=== PATIENT | male | born 1970 | race Caucasian/White ===

== ENCOUNTER 2020-04-20 18:47 | Emergency (ER) | payer OTHER ==
[~2020-04-20] VITALS: Ht 182.9 cm; Wt 134.1 kg
[2020-04-20 20:42] LABS: BASO # 0.1 x10^3/uL (0.0-0.2); BASO % 1 % (0-3); EOS # 0.3 x10^3/uL (0.0-0.7); EOS % 2 % (0-3); HEMATOCRIT 43.1 % (39.0-53.0); HEMOGLOBIN 14.7 g/dL (13.0-17.5); LYMPH # 1.1 x10^3/uL (1.0-4.8); LYMPH % 9 % (24-48); MEAN CORPUSCULAR HEMOGLOBIN 29 pg (25-35); MEAN CORPUSCULAR HGB CONC 34 g/dL (31-37); MEAN CORPUSCULAR VOLUME 86 fL (79-100); MONO # 0.5 x10^3/uL (0.0-1.1); MONO % 4 % (0-9); NEUT # 9.4 x10^3/uL (1.8-7.7); NEUT % 83 % (31-73); PLATELET COUNT 300 x10^3/uL (140-400); RED BLOOD COUNT 5.01 x10^6/uL (4.30-5.70); RED CELL DISTRIBUTION WIDTH 14.6 % (11.5-14.5); WHITE BLOOD COUNT 11.3 x10^3/uL (4.0-11.0)
[2020-04-20 20:44] LABS: BILIRUBIN,URINE NEGATIVE (NEG); CLARITY,URINE CLEAR; COLOR,URINE YELLOW; NITRITE,URINE NEGATIVE (NEG); PH,URINE 5.5 (<5.0-8.0); PROTEIN,URINE 30 mg/dL (NEG-TRACE); UROBILINOGEN,URINE 0.2 mg/dL (0.2 mg/dL)
[2020-04-20 20:50] LABS: BACTERIA,URINE 0 /HPF (0-FEW); RBC,URINE >40 /HPF (0-2); WBC,URINE OCC /HPF (0-4)
--- NOTE | 2020-04-20 20:55 | PHYS DOC ---
Past Medical History Past Medical History: Diabetes-Type II, High Cholesterol, Hypertension Past Surgical History: No Surgical History Smoking Status: Never Smoker Alcohol Use: None General Adult EDM: Chief Complaint: FLANK PAIN HPI: HPI: Patient is a 49 year old male who presents with acute left flank pain. Onset of symptoms was less than 1 hour prior to arrival. 800 mg ibuprofen was taken on onset, nothing else known makes better or worse. Patient reports left flank pain that was sharp, non-radiating and 10/10 in severity. Patient reports no inciting events, claims he was sleeping when pain started. Timing of pain was constant since onset but arrived shortly after arrival into ED room. Patient reports distant history of kidney stone but unsure if this was similar. He denies other symptoms of hematuria, history of STDs, changes in bladder or bowel habits, or incontinence Review of Systems: Review of Systems: Constitutional: Denies fever or chills. Eyes: Denies change in visual acuity. HENT: Denies nasal congestion or sore throat. Respiratory: Denies cough or shortness of breath. Cardiovascular: Denies chest pain or edema. GI: Denies vomiting, bloody stools or diarrhea. Positive for left flank pain as described in HPI, positive nausea : Denies dysuria. No gross hematuria Musculoskeletal: Denies back pain or joint pain. Integument: Denies rash. Neurologic: Denies headache, focal weakness or sensory changes. Endocrine: Denies polyuria or polydipsia. Lymphatic: Denies swollen glands. Psychiatric: Denies depression or anxiety. Heart Score: Risk Factors: Risk Factors: DM, Current or recent (<one month) smoker, HTN, HLP, family history of CAD, obesity. Risk Scores: Score 0 - 3: 2.5% MACE over next 6 weeks - Discharge Home Score 4 - 6: 20.3% MACE over next 6 weeks - Admit for Clinical Observation Score 7 - 10: 72.7% MACE over next 6 weeks - Early Invasive Strategies Allergies: Allergies: Allergies Coded Allergies Type Severity Reaction Last Updated Verified No Known Drug Allergies 04/20/20 No Physical Exam: PE: Constitutional: Well developed, well nourished, no acute distress, non-toxic appearance. [] HENT: Normocephalic, atraumatic, bilateral external ears normal, oropharynx moist, no oral exudates, nose normal. [] Eyes: PERRLA, EOMI, conjunctiva normal, no discharge. [] Neck: Normal range of motion, no tenderness, supple, no stridor. [] Cardiovascular:Heart rate regular rhythm, no murmur [] Lungs & Thorax: Bilateral breath sounds clear to auscultation [] Abdomen: Bowel sounds normal, soft, no tenderness, no masses, no pulsatile masses. No suprapubic tenderness. Nonsurgical abdomen, no peritoneal signs [] Skin: Warm, dry, no erythema, no rash. [] Back: No tenderness, mild left CVA tenderness. [] Extremities: No tenderness, no cyanosis, no clubbing, ROM intact, no edema. [] Neurologic: Alert and oriented X 3, normal motor function, normal sensory function, no focal deficits noted. [] Psychologic: Affect normal, judgement normal, mood normal. [] Current Patient Data: Labs: Laboratory Tests Test 04/20/20 19:10 04/20/20 19:25 Urine Collection Type Unknown Urine Color Yellow Urine Clarity Clear Urine pH 5.5 (<5.0-8.0) Urine Specific [place] 1.020 (1.000-1.030) Urine Protein 30 mg/dL (NEG-TRACE) Urine Glucose (UA) Negative mg/dL (NEG) Urine Ketones (Stick) Trace mg/dL (NEG) Urine Blood Large (NEG) Urine Nitrite Negative (NEG) Urine Bilirubin Negative (NEG) Urine Urobilinogen Dipstick 0.2 mg/dL (0.2 mg/dL) Urine Leukocyte Esterase Negative (NEG) Urine RBC >40 /HPF (0-2) Urine WBC Occ /HPF (0-4) Urine Squamous Epithelial Cells None /LPF Urine Bacteria 0 /HPF (0-FEW) Urine Mucus Slight /LPF White Blood Count 11.3 x10^3/uL (4.0-11.0) H Red Blood Count 5.01 x10^6/uL (4.30-5.70) Hemoglobin 14.7 g/dL (13.0-17.5) Hematocrit 43.1 % (39.0-53.0) Mean Corpuscular Volume 86 fL (79-100) Mean Corpuscular Hemoglobin 29 pg (25-35) Mean Corpuscular Hemoglobin Concent 34 g/dL (31-37) Red Cell Distribution Width 14.6 % (11.5-14.5) H Platelet Count 300 x10^3/uL (140-400) Neutrophils (%) (Auto) 83 % (31-73) H Lymphocytes (%) (Auto) 9 % (24-48) L Monocytes (%) (Auto) 4 % (0-9) Eosinophils (%) (Auto) 2 % (0-3) Basophils (%) (Auto) 1 % (0-3) Neutrophils # (Auto) 9.4 x10^3/uL (1.8-7.7) H Lymphocytes # (Auto) 1.1 x10^3/uL (1.0-4.8) Monocytes # (Auto) 0.5 x10^3/uL (0.0-1.1) Eosinophils # (Auto) 0.3 x10^3/uL (0.0-0.7) Basophils # (Auto) 0.1 x10^3/uL (0.0-0.2) Laboratory Tests 04/20/20 19:25 Vital Signs: Vital Signs Date Time Temp Pulse Resp B/P (MAP) Pulse Ox O2 Delivery O2 Flow Rate FiO2 04/20/20 19:08 98.8 75 18 158/101 (120) 98 Room Air 98.8 EKG: EKG: EKG obtained and reviewed by myself at 2046 hrs., normal sinus rhythm at 75 bpm, unremarkable intervals, mild left axis deviation, no acute ischemia, no STEMI Radiology/Procedures: Radiology/Procedures: [] Course & Med Decision Making: Course & Med Decision Making Patient seen on ED arrival by myself Vital signs remarkable for elevated blood pressure otherwise grossly unremarkable Physical exam grossly unremarkable, nonsurgical abdomen Pertinent Labs and Imaging studies reviewed. (See chart for details) Besides elevated blood pressure, and hematuria found on UA, no other concerning findings today. Discussed potential of imaging with patient; however, given that patient had been asymptomatic since ED arrival with known history of kidney stones, recommended imaging studies deferred Patient was able to tolerate p.o. intake and self ambulate in ED prior to departure without issue. Continued supportive care for most likely nephrolithiasis versus left lumbar strain with as needed 800 mg ibuprofen previously prescribed for right shoulder advised with close PCP follow-up advised regarding resolved left flank pain and uncontrolled hypertension. Strict return precautions discussed at length with good understanding. All que stions and concerns addressed prior to ED departure [] Trev Disclaimer: Trev Disclaimer: This electronic medical record was generated, in whole or in part, using a voice recognition dictation system. Departure Departure Impression: Primary Impression: Left flank pain Additional Impression: HTN (hypertension) Disposition: 01 HOME, SELF-CARE Referrals: CALLIE PUENTE MD (PCP) Follow-up for left flank pain, likely kidney stone Follow-up on uncontrolled hypertension, Patient Instructions: Flank Pain, Hypertension Additional Instructions: Continue to take 800 mg ibuprofen as needed for pain as previously scheduled Justicifation of Admission Dx: Justifications for Admission: Justification of Admission Dx: N/A ALONZO ALDANA DO Apr 20, 2020 20:55
[2020-04-20 21:23] LABS: CALCIUM 8.5 mg/dL (8.5-10.1); GFR 79.1; POTASSIUM 3.9 mmol/L (3.5-5.1)
[2020-04-20 21:29] LABS: ALBUMIN 3.3 g/dL (3.4-5.0); TOTAL BILIRUBIN 0.5 mg/dL (0.2-1.0); TOTAL PROTEIN 6.7 g/dL (6.4-8.2)
[2020-04-20 22:14] VITALS: BP 165/107
--- NOTE | 2020-04-21 04:46 | EKG ---
[facility] [address] [place] [address] Test Date: 2020-04-20 Test Time: 20:40:16 Pat Name: ABEBE KING Department: Room: Gender: M Roundsman: Felicity : 1970 Requested By: ALONZO ALDANA Order Number: [id number] Reading MD: Measurements Intervals [place] Rate: 75 P: -17 MS: 158 QRS: 0 QRSD: 94 T: 9 QT: 390 QTc: 438 Interpretive Statements SINUS RHYTHM LEFTWARD AXIS NO SPECIFIC ECG ABNORMALITIES RI6.01 No previous ECG available for comparison
== END 2020-04-20 22:46 | disposition home or self-care (01) ==
LOC: ER 18:47
DX: I10 Essential (primary) hypertension (principal); R10.9 Unspecified abdominal pain; R11.0 Nausea; M54.2 Cervicalgia; E11.9 Type 2 diabetes mellitus without complications; E78.00 Pure hypercholesterolemia, unspecified
CPT/HCPCS: 36415; 80053; 81001; 85025; 93005; 99285

== ENCOUNTER 2021-11-21 08:28 | Emergency (ER) | payer BC, OTHER ==
[~2021-11-21] VITALS: Ht 185.4 cm; Wt 120.4 kg
[2021-11-21] MEDS ORDERED: KETOROLAC 15 MG/ML VIAL. IVP ONE (08:45)
[2021-11-21] MEDS ORDERED: METOCLOPRAMIDE HCL 10 MG/2 ML VIAL. IVP ONE (08:45)
[2021-11-21] MEDS ORDERED: IV NORMAL SALINE 1000ML BAG 1,000 ML IV ONE (08:45)
[2021-11-21 08:51] LABS: BASO # 0.1 x10^3/uL (0.0-0.2); BASO % 1 % (0-3); EOS # 0.2 x10^3/uL (0.0-0.7); EOS % 2 % (0-3); HEMOGLOBIN 15.7 g/dL (13.0-17.5); LYMPH # 1.2 x10^3/uL (1.0-4.8); LYMPH % 11 % (24-48); MEAN CORPUSCULAR HEMOGLOBIN 30 pg (25-35); MEAN CORPUSCULAR HGB CONC 33 g/dL (31-37); MEAN CORPUSCULAR VOLUME 89 fL (79-100); MONO # 0.8 x10^3/uL (0.0-1.1); MONO % 7 % (0-9); NEUT # 8.9 x10^3/uL (1.8-7.7); NEUT % 80 % (31-73); PLATELET COUNT 374 x10^3/uL (140-400); RED BLOOD COUNT 5.32 x10^6/uL (4.30-5.70); RED CELL DISTRIBUTION WIDTH 13.7 % (11.5-14.5); WHITE BLOOD COUNT 11.2 x10^3/uL (4.0-11.0)
[2021-11-21 08:53] LABS: BILIRUBIN,URINE NEGATIVE (NEG); CLARITY,URINE TURBID; COLOR,URINE YELLOW; NITRITE,URINE NEGATIVE (NEG); PROTEIN,URINE NEGATIVE (NEG-TRACE); UROBILINOGEN,URINE 0.2 mg/dL (0.2 mg/dL)
[2021-11-21 09:00] LABS: AMORPHOUS SEDIMENT,UR PRESENT /HPF
[2021-11-21 09:01] LABS: BACTERIA,URINE 0 /HPF (0-FEW); WBC,URINE OCC /HPF (0-4)
[2021-11-21 09:10] LABS: CALCIUM 8.7 mg/dL (8.5-10.1); CREATININE 1.6 mg/dL (0.7-1.3); GFR 45.6; POTASSIUM 4.8 mmol/L (3.5-5.1)
[2021-11-21 09:16] LABS: ALBUMIN 3.8 g/dL (3.4-5.0); ALBUMIN/GLOBULIN RATIO 1.2 (1.0-1.7); MAGNESIUM 2.1 mg/dL (1.8-2.4); TOTAL BILIRUBIN 0.6 mg/dL (0.2-1.0)
[2021-11-21 09:38] VITALS: BP 141/90
--- NOTE | 2021-11-21 09:40 | RAD ---
INDICATION: Reason: left flank pain, nausea, eval for kidney stone / Spl. Instructions: / History: COMPARISON: None. TECHNIQUE: Axial CT images were obtained through the abdomen and pelvis without intravenous contrast. One or more of the following individualized dose reduction techniques were utilized for this examinat ion: 1. Automated exposure control; 2. Adjustment of the mA and/or kV according to patient size; 3 . Use of iterative reconstruction technique. FINDINGS: Mild bronchiectasis at lung base. Vascular: No abdominal aortic aneurysm. Hepatobiliary: Liver is mildly prominent in size. Pancreas: No peripancreatic edema. Spleen: Spleen unremarkable. Renal/Bladder: 7 cm left renal cystic lesion. Additional low-density exophytic lesion off the right k [place]ney. Left-sided hydronephrosis and hydroureter with perinephric edema. There is a couple of left di stal ureter stones measuring up to 3 mm. Urinary bladder is decompressed with thickened wall and niurka stinctness of adjacent fat. Gastrointestinal: Mild prominence of rectal wall but the rectum is not very distended. Colonic divert iculosis. Small fat-containing umbilical hernia. No periappendiceal inflammatory changes. Degenerative changes the spine with multilevel central canal and neural foraminal stenosis. IMPRESSION: * Left-sided hydronephrosis and hydroureter with adjacent edema and a couple of distal ureter stone s. * Urinary bladder is decompressed with prominence of the wall. Could be from lack of distention but cannot exclude cystitis. Electronically signed by: Bunny Clinton MD (11/21/2021 9:38 AM) [id number]
--- NOTE | 2021-11-21 09:43 | PHYS DOC ---
Past Medical History Past Medical History: Diabetes-Type II, High Cholesterol, Hypertension Past Surgical History: Other Additional Past Surgical Histo: RIGHT SHOULDER Smoking Status: Never Smoker Alcohol Use: Rarely General Adult EDM: Chief Complaint: NAUSEA/VOMITING/DIARRHEA HPI: HPI: Patient is a 51 year old M who presents with n/v since 11/19/21. Patient reports Saturday night he began experiencing 7/10 stabbing, localized Left flank pain and subsequently had 2 episodes of vomiting. Patient reports having experienced a similar pain 2 years ago and pain resolving with ibuprofen. However, Patient reports taking ibuprofen 800mg q4h and a heating pad with minimal relief. He reports that the pain increased to a 8/10 on Saturday and had to leave work. He reports having to pull-over while driving home due to "excruciating pain" and experiencing another episode of n/v. Patient now reports his pain is a 9/10. Patient reports he has been on the "[employer] diet" for the past 3 weeks which includes cutting down on sugar and carbohydrate intake. He denies changes in urinary frequency, dysuria, hematuria, fever, chills, night sweats, chest pain, and shortness of breath. Review of Systems: Review of Systems: Constitutional: Denies fever or chills. HENT: Denies nasal congestion or sore throat. Respiratory: Denies cough or shortness of breath. Cardiovascular: Denies chest pain or palpitations. GI: Denies abdominal pain and diarrhea. Reports nausea, vomiting, and left flank pain. : Denies dysuria or hematuria. Musculoskeletal: Denies back pain or joint pain. Integument: Denies rash or skin lesions. Neurologic: Denies headache, focal weakness or sensory changes. Complete systems were reviewed and found to be within normal limits, except as documented in this note. Heart Score: C/O Chest Pain: No Current Medications: Current Medications Medications (Trade) Dose Ordered Sig/Adrienne Start Time Stop Time Status Last Admin Dose Admin Ketorolac Tromethamine (Toradol 15mg Vial) 15 mg 1X ONCE 11/21/21 08:45 11/21/21 08:49 DC 11/21/21 09:01 15 MG Metoclopramide HCl (Reglan Vial) 10 mg 1X ONCE 11/21/21 08:45 11/21/21 08:49 DC 11/21/21 08:59 10 MG Sodium Chloride 1,000 ml @ 1,000 mls/hr 1X ONCE 11/21/21 08:45 11/21/21 09:44 11/21/21 08:59 1,000 MLS/HR Allergies: Allergies: Allergies Coded Allergies Type Severity Reaction Last Updated Verified No Known Drug Allergies 04/20/20 No Physical Exam: PE: Constitutional: Well developed, well nourished, mild distress, non-toxic appearance. HENT: Normocephalic, atraumatic. Eyes: PERRL, EOMI, conjunctiva normal, no discharge. Neck: Normal range of motion, no tenderness, supple. Lungs & Thorax: No respiratory distress, equal chest rise and fall. Abdomen: Soft, no tenderness, normoactive bowel sounds x4 quadrants. Skin: Warm, dry, no erythema, no rash. Back: No tenderness, Left-sided CVA tenderness. Extremities: No tenderness, ROM intact, no edema, +2/4 bilateral UE/LE pulses. Neurologic: Alert and oriented X 3, normal motor function, normal sensory function, no focal deficits noted. Psychologic: Affect normal, judgment normal. Current Patient Data: Labs: Laboratory Tests Test 11/21/21 08:45 White Blood Count 11.2 x10^3/uL (4.0-11.0) H Red Blood Count 5.32 x10^6/uL (4.30-5.70) Hemoglobin 15.7 g/dL (13.0-17.5) Hematocrit 47.0 % (39.0-53.0) Mean Corpuscular Volume 89 fL (79-100) Mean Corpuscular Hemoglobin 30 pg (25-35) Mean Corpuscular Hemoglobin Concent 33 g/dL (31-37) Red Cell Distribution Width 13.7 % (11.5-14.5) Platelet Count 374 x10^3/uL (140-400) Neutrophils (%) (Auto) 80 % (31-73) H Lymphocytes (%) (Auto) 11 % (24-48) L Monocytes (%) (Auto) 7 % (0-9) Eosinophils (%) (Auto) 2 % (0-3) Basophils (%) (Auto) 1 % (0-3) Neutrophils # (Auto) 8.9 x10^3/uL (1.8-7.7) H Lymphocytes # (Auto) 1.2 x10^3/uL (1.0-4.8) Monocytes # (Auto) 0.8 x10^3/uL (0.0-1.1) Eosinophils # (Auto) 0.2 x10^3/uL (0.0-0.7) Basophils # (Auto) 0.1 x10^3/uL (0.0-0.2) Urine Collection Type Void Urine Color Yellow Urine Clarity Turbid Urine pH 6.0 (<5.0-8.0) Urine Specific [place] >=1.030 (1.000-1.030) Urine Protein Negative mg/dL (NEG-TRACE) Urine Glucose (UA) Negative mg/dL (NEG) Urine Ketones (Stick) 15 mg/dL (NEG) Urine Blood Moderate (NEG) Urine Nitrite Negative (NEG) Urine Bilirubin Negative (NEG) Urine Urobilinogen Dipstick 0.2 mg/dL (0.2 mg/dL) Urine Leukocyte Esterase Negative (NEG) Urine RBC 3-5 /HPF (0-2) Urine WBC Occ /HPF (0-4) Urine Amorphous Sediment Present /HPF Urine Bacteria 0 /HPF (0-FEW) Sodium Level 136 mmol/L (136-145) Potassium Level 4.8 mmol/L (3.5-5.1) Chloride Level 101 mmol/L (98-107) Carbon Dioxide Level 26 mmol/L (21-32) Anion Gap 9 (6-14) Blood Urea Nitrogen 17 mg/dL (8-26) Creatinine 1.6 mg/dL (0.7-1.3) H Estimated GFR (Cockcroft-Gault) 45.6 BUN/Creatinine Ratio 11 (6-20) Glucose Level 161 mg/dL (70-99) H Calcium Level 8.7 mg/dL (8.5-10.1) Magnesium Level 2.1 mg/dL (1.8-2.4) Total Bilirubin 0.6 mg/dL (0.2-1.0) Aspartate Amino Transferase (AST) 26 U/L (15-37) Alanine Aminotransferase (ALT) 38 U/L (16-63) Alkaline Phosphatase 81 U/L (46-116) Troponin I High Sensitivity 11 ng/L (4-75) Total Protein 7.0 g/dL (6.4-8.2) Albumin 3.8 g/dL (3.4-5.0) Albumin/Globulin Ratio 1.2 (1.0-1.7) Lipase 275 U/L (73-393) Laboratory Tests 11/21/21 08:45 Laboratory Tests 11/21/21 08:45 Vital Signs: Vital Signs Date Time Temp Pulse Resp B/P (MAP) Pulse Ox O2 Delivery O2 Flow Rate FiO2 11/21/21 08:43 97.0 75 18 155/98 (117) 98 Room Air 97.0 EKG: EK:16:22 Rate 70 with normal sinus rhythm. No ST elevations. MO 156ms, QRS 90ms, QTc 400ms. Radiology/Procedures: Radiology/Procedures: PROCEDURE: CT ABDOMEN PELVIS WO CONTRAST INDICATION: Reason: left flank pain, nausea, eval for kidney stone / Spl. Instructions: / History: COMPARISON: None. TECHNIQUE: Axial CT images were obtained through the abdomen and pelvis without intravenous contrast. One or more of the following individualized dose reduction techniques were utilized for this examination: 1. Automated exposure control; 2. Adjustment of the mA and/or kV according to patient size; 3. Use of iterative reconstruction technique. FINDINGS: Mild bronchiectasis at lung base. Vascular: No abdominal aortic aneurysm. Hepatobiliary: Liver is mildly prominent in size. Pancreas: No peripancreatic edema. Spleen: Spleen unremarkable. Renal/Bladder: 7 cm left renal cystic lesion. Additional low-density exophytic lesion off the right kidney. Left-sided hydronephrosis and hydroureter with perinephric edema. There is a couple of left distal ureter stones measuring up to 3 mm. Urinary bladder is decompressed with thickened wall and indistinctness of adjacent fat. Gastrointestinal: Mild prominence of rectal wall but the rectum is not very distended. Colonic diverticulosis. Small fat-containing umbilical hernia. No periappendiceal inflammatory changes. Degenerative changes the spine with multilevel central canal and neural fo raminal stenosis. IMPRESSION: * Left-sided hydronephrosis and hydroureter with adjacent edema and a couple of distal ureter stones. * Urinary bladder is decompressed with prominence of the wall. Could be from lack of distention but cannot exclude cystitis. Electronically signed by: Bunny Clinton MD (11/21/2021 9:38 AM) [id number] Course & Med Decision Making: Course & Med Decision Making Pertinent Labs and Imaging studies reviewed. (See chart for details) Patient presented with nausea and vomiting. Patient was worked up for possible nephrolithiasis. EKG showed normal sinus rhythm with rate of 70. CT abdomen pelvis without contrast showed evidence of left distal ureter stones measuring up to 3 mm. Patient given bolus normal saline, metoclopramide 10 mg, ketorolac 15 mg, and tamsulosin 0.4 mg. Will discharge on tamsulosin. Patient stable for discharge with outpatient follow-up with PCP. Discussed findings and plan with patient, who acknowledges understanding and agreement. Dragon Disclaimer: [id number] Disclaimer: This electronic medical record was generated, in whole or in part, using a voice recognition dictation system. Departure Departure Impression: Primary Impression: Kidney stone Disposition: HOME / SELF CARE / HOMELESS Condition: STABLE Referrals: ARNULFO CARLSON MD (PCP) Patient Instructions: Chronic Renal Insufficiency, Diet for Kidney Stones, Kidney Stones, [id number] Additional Instructions: In March 2020 your Creatnine (kidney function) was 1.0. Today it is 1.6. Please increase your hydration and have your family doctor recheck your labs. May use [id number] ibuprofen and or Tylenol for pain or discomfort. Scripts Tamsulosin Hcl (FLOMAX) 0.4 Mg Cap.er.24h 1 CAP PO DAILY for 7 Days, #7 CAP Prov: JAMES GRIFFITHS DO 11/21/21 Ondansetron (ONDANSETRON ODT) 4 Mg Tab.rapdis 1 TAB PO PRN Q6-8HRS PRN for NAUSEA, #16 TAB Prov: JAMES GRIFFITHS DO 11/21/21 JAMES GRIFFITHS DO Nov 21, 2021 09:43
[2021-11-21] MEDS ORDERED: TAMSULOSIN 0.4 MG CAP.ER.24H. PO ONE (10:00)
[2021-11-21] MEDS ORDERED: TAMS0.4C97 PO (10:17)
[2021-11-21] MEDS ORDERED: ONDA4TAB12 PO (10:17)
--- NOTE | 2021-11-22 05:40 | EKG ---
[facility] [address] [place] [address] Test Date: 2021-11-21 Test Time: 09:16:22 Pat Name: ABEBE KING Department: Room: Gender: M Cabana Attendant: : 1970 Requested By: JAMES GRIFFITHS Order Number: [id number] Reading MD: Measurements Intervals [place] Rate: 70 P: -22 [place]: 156 QRS: 0 QRSD: 90 T: 18 QT: 370 QTc: 402 Interpretive Statements SINUS RHYTHM LEFTWARD AXIS R-S TRANSITION ZONE IN V LEADS DISPLACED TO THE LEFT OTHERWISE NORMAL ECG RI6.02 No previous ECG available for comparison
== END 2021-11-21 10:15 | disposition home or self-care (01) ==
LOC: ER 08:28
DX: N13.2 Hydronephrosis with renal and ureteral calculous obstruction (principal); E11.9 Type 2 diabetes mellitus without complications; E78.00 Pure hypercholesterolemia, unspecified; I10 Essential (primary) hypertension
CPT/HCPCS: 36415; 74176; 80053; 81001; 82553; 83690; 83735; 84484; 85025; 93005; 96361; 96374; 96375; 99285; J1885; J2765; J7030